=== PATIENT | female | born 1980 | race Caucasian/White ===

== ENCOUNTER 2017-04-10 02:29 | Inpatient (IN) | payer MEDICAID ==
[~2017-04-10] VITALS: Ht 167.6 cm; Wt 101.6 kg
[2017-04-10] VITALS (7 sets, daily range): BP systolic 132–152; BP diastolic 70–102
--- NOTE | ~2017-04-10 | PROC ---
[address] [address] PROCEDURE REPORT Name: MIRLANDE QUEEN Room: [address] IN M.R.#: [id number] Admission: 04/10/17 Attend Phys: Eleanor Flores DO Discharge: 04/12/17 Date of : 78 Report #: [id number] THIS REPORT FOR: //name// For details of GI report, please see the Provation report in [employer] content. By: [id number] Records Staff MEAGHAN /JUAN ANTONIO
[~2017-04-10 02:29] MED LIST: ALPRAZOLAM 0.0.25 M1; FLONASE 0.05%50 MCG NASAL; MUCOSA400 MG PO; NASONEX17 GM; NORCO 5-325 TA1 EACH PO; NORFLEX100 MG PO; TESSALON PERLE100 MG PO; ZPAK PO
[2017-04-10] MEDS ORDERED: NOHOMEMEDICATIONS (02:45)
[2017-04-10 03:01] LABS: URINE BILIRUBIN NEGATIVE (Negative); URINE BLOOD NEGATIVE (Negative); URINE CLARITY CLEAR; URINE COLOR YELLOW; URINE GLUCOSE-RANDOM NEGATIVE (Negative); URINE KETONES NEGATIVE (Negative); URINE LEUKOCYTES-REFLEX NEGATIVE (Negative); URINE NITRITE-REFLEX NEGATIVE (Negative); URINE PROTEIN NEGATIVE (Negative); URINE SPECIFIC GRAVITY >= 1.030 (1.005-1.030); URINE UROBILINOGEN 0.2 E.U./dl (0.2-1.0)
[2017-04-10 03:13] LABS: ABSOLUTE BASOPHILS 0.1 thou/uL (0.0-0.2); ABSOLUTE EOSINOPHILS 0.2 thou/uL (0.0-0.7); ABSOLUTE LYMPHOCYTES 2.1 thou/uL (0.8-5.3); ABSOLUTE MONOCYTES 0.6 thou/uL (0.0-1.2); ABSOLUTE NEUTROPHILS 7.7 thou/uL (1.6-8.1); BASOPHILS 0.9 %; EOSINOPHILS 1.8 %; HEMATOCRIT 39.3 % (37.0-47.0); HEMOGLOBIN 13.9 gm/dL (12.0-15.0); LYMPHOCYTES 19.3 %; MCH 30.5 pg (26.0-34.0); MCHC 35.3 g/dL (28.0-37.0); MCV 86.4 fL (80.0-100.0); MONOCYTES 5.5 %; MPV 6.6 fl. (7.2-11.1); NUCLEATED RBCS 0 /100WBC; PLATELET COUNT* 405 thou/uL (150-400); POLYS 72.5 %; RBC 4.56 mil/uL (4.20-5.00); RDW-CV 12.9 % (10.5-14.5); WBC 10.7 thou/uL (4.0-11.0)
[2017-04-10 03:15] LABS: AMP/METHAMP POSITIVE (Negative); BARBITURATES Negative (Negative); BENZODIAZEPINES Negative (Negative); COCAINE Negative (Negative); METHADONE Negative (Negative); OPIATES Negative (Negative); PCP Negative (Negative); THC Negative (Negative)
[2017-04-10 03:32] LABS: CALCIUM 8.6 mg/dL (8.5-10.1); CREATININE 0.7 mg/dL (0.6-1.3); POTASSIUM 3.9 mmol/L (3.5-5.1)
[2017-04-10 03:37] LABS: ALBUMIN 2.7 g/dL (3.4-5.0); TOTAL BILIRUBIN 0.4 mg/dL (<0.1-1.0)
--- NOTE | 2017-04-10 04:00 | NUR ---
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
--- NOTE | 2017-04-10 15:16 | NUR ---
PT ADMITTED FROM ED WITH ABD PAIN, C/O HEADACHE AND NAUSEA. PT DOES NOT WANT TO HAVE DILAUDID ANYMORE. PT DOES NOT LIKE THE WAY IT MAKES HER FEEL. DENIES ABD PAIN CURRENTLY.
[2017-04-11 04:02] LABS: HEMATOCRIT 40.5 % (37.0-47.0); HEMOGLOBIN 13.7 gm/dL (12.0-15.0); MCHC 33.7 g/dL (28.0-37.0); MPV 6.7 fl. (7.2-11.1); RBC 4.55 mil/uL (4.20-5.00); RDW-CV 12.8 % (10.5-14.5); WBC 8.3 thou/uL (4.0-11.0)
[2017-04-11 04:19] LABS: CALCIUM 8.9 mg/dL (8.5-10.1); CREATININE 0.7 mg/dL (0.6-1.3); POTASSIUM 4.4 mmol/L (3.5-5.1)
--- NOTE | 2017-04-11 05:05 | NUR ---
PATIENT ALERT AND ORIENTED. VITALS STABLE. RA. DENIES ABDOMINAL PAIN. COMPLAINTS OF MILD NAUSEA. FLUIDS INFUSING PER ORDER. SLEPT COMFORTABLY DURING THE NIGHT. TORADOL GIVEN FOR A HEADACHE. HOURLY ROUNDS. NURSING WILL CONTINUE TO MONITOR
[2017-04-11 08:01] VITALS: BP 129/67
--- NOTE | 2017-04-11 09:47 | NUR ---
ASSUMED CARE OF PATIENT AFTER REPORT. PATIENT AWAKE, ALERT, AND ORIENTED APPROPRIATELY. PHYSICAL ASSESSMENT COMPLETED AND CHARTED. NO COMPLAINTS OF PAIN. GIVEN SCHEDULED MEDICATIONS, SEE EMAR FOR DOCUMENTATION. VITAL SIGNS STABLE. OXYGEN SATURATION WNL ON ROOM AIR. PATIENT IS UP AD KRISTA. USES CALL LIGHT APPROPRIATELY. DENIES NEEDS AT THIS TIME. NURSING WILL CONTINUE TO MONITOR.
[2017-04-11 16:52] VITALS: BP 132/73
--- NOTE | 2017-04-11 18:42 | NUR ---
ASSUMED CARE OF PATIENT AFTER TRNASFER OF CARE AT APPROXIMATELY 1530. AGREE WITH PREVIOUS NURSES ASSESSMENT. PATIENT REMAINS ALERT AND ORIENTED. NO COMPLAINTS OF NAUSEA OR PAIN. HOURLY ROUNDS MAINTAINED. CALL LIGHT IS WITHIN REACH. NURSING WILL CONTINUE TO MONITOR.
[2017-04-12 04:19] VITALS: BP 116/67
--- NOTE | 2017-04-12 04:38 | NUR ---
PATIENT SLEPT FOR MOST OF SHIFT. ORIENTED X4 ON HOURLY ROUNDS. HAD TO ENCOURAGE PATIENT TO STAY AWAKE TO COMPLETE BOWEL PREP. SHE STATED THAT "IT DOESN'T TASTE GOOD AND MAKING ME SICK AT MY STOMACH." BOWELS NOT YET CLEAR THIS AM. PHYSICIAN TO BE NOTIFIED. UP AD KRISTA. IN ROOM. DENIES PAIN. VITALS STABLE. WILL CONTINUE TO MONITOR.
[2017-04-12 07:43] VITALS: BP 116/67
[2017-04-12 08:51] VITALS: BP 120/73
[2017-04-12 11:00] VITALS: BP 138/73
--- NOTE | 2017-04-12 11:39 | NUR ---
PATIENT ARRIVED BACK ON THE UNIT FROM PACU AT APPOXIMATELY 1100. ALERT AND ORIENTED. VSS ON ROOM AIR. PATIENT IS TO REMAIN NPO, CONTRAST WAS BROUGHT UP BY RADIOLOGY FOR UPCOMING CT SCAN. PATIENT IS CURRENTLY WORKING ON CONSUMING CONTRAST. CALL LIGHT IS WITHIN REACH. NURSING WILL CONTINUE TO MONITOR.
[2017-04-12 13:37] LABS: CALCIUM 8.2 mg/dL (8.5-10.1); CREATININE 0.7 mg/dL (0.6-1.3); POTASSIUM 3.7 mmol/L (3.5-5.1)
[2017-04-12 14:41] VITALS: BP 138/73
[2017-04-12] MEDS ORDERED: COLACE 100 MG100 MG PO (14:54)
[2017-04-12] MEDS ORDERED: MIRALAX17 GM PO (14:55)
[2017-04-12] MEDS ORDERED: FLAGYL500 MG PO (14:56)
[2017-04-12] MEDS ORDERED: CIPRO500 MG PO (14:57)
--- NOTE | 2017-04-12 17:13 | NUR ---
ASSUMED CARE OF PATIENT AFTER MORNING REPORT. ALERT AND ORIENTED X4. ASSESSMENT COMPLETED AND CHARTED. VSS ON ROOM AIR. PATIENT HAD NO COMPLAINTS OF PAIN OR NAUSEA THIS SHIFT. COLONOSCOPY DONE THIS MORNING. PATIENT ADVANCED TO REGULAR DIET AND TOLERATED WELL. PATIENT DISCHARGED AT 1710 WITH SPOUSE. ALL PERSONAL BELONGINGS LEFT WITH PATIENT. DISCHARGE INSTRUCTIONS AND PRESCRIPTIONS SENT WITH PATIENT UPON DISCHARGE.
--- NOTE | 2017-04-15 12:56 | S ---
[address] [address] SURGICAL PATH RPT PROCEDURE Name: ALICIA QUEEN Room: [address] IN M.R.#: [id number] Admission: 04/10/17 Date of : 78 Discharge: 04/12/17 Report #: [id number] Path Case #: [id number] PATHOLOGY REPORT COLLECTION DATE: 04/12/2017 RECEIVED DATE: 04/12/2017 SUBMITTING PHYS: Dr. Teresa Reeves OTHER PHYS: Dr. Eleanor Munoz SPECIMEN(S) RECEIVED: A.Sigmoid polyp * * * * * * * * * * * * FINAL DIAGNOSIS: Sigmoid colon polyp: - Hyperplastic polyp. (JUAN MIGUEL:[facility]; 04/15/2017) PATHOLOGIST: Pancho Dye M.D. REPORT ELECTRONICALLY SIGNED BY: Pancho Dye M.D. DATE/TIME: 04/15/2017 12:56 * * * * * * * * * * * * GROSS PATHOLOGY: Received in formalin labeled "Alicia Queen sigmoid colon polyp," is a segment of leon soft tissue measuring 0.4 cm in maximum dimension. The specimen is submitted entirely in cassette A1. ([facility]; 04/12/2017) CLINICAL HISTORY: None provided INITIAL CPT CODE(S): A; 94747 Professional services performed by [facility] at [facility], [facility] [address], [place] [address]. Technical services performed by [facility] at [address] [place] [address], [address], [place] [address]. [facility] [address] [address] PHONE: [phone] [place] [address] SURGICAL PATH RPT PROCEDURE Name: ALICIA QUEEN Room: [address] IN M.R.#: [id number] Admission: 04/10/17 Date of : 78 Discharge: 04/12/17 Report #: [id number] Path Case #: [id number] DIRECTOR: Sanjiv Erazo M.D. * * * END OF REPORT * * *
--- NOTE | 2017-04-17 16:13 | CON ---
[address] [address] CONSULTATION Name: MIRLANDE QUEEN Room: [address] IN M.R.#: [id number] Admission: 04/10/17 Attend Phys: Eleanor Flores, Discharge: 04/12/17 Date of : 78 Report #: [id number] THIS REPORT FOR: //name// CC: Eleanor Munoz DICTATED BY: Shakila Avendano [facility] DATE OF SERVICE: 04/11/2017 The patient does not have a PCP. Please note at the time of this dictation, the patient was seen and physically examined by myself. REASON FOR CONSULTATION: Abdominal pain and abnormal CT findings of the small bowel. HISTORY OF PRESENT ILLNESS: This 36-year-old female presented to the Emergency Room after beginning to have abdominal pain, which started on April 03. She states it was an acute onset and she described it as a twisting severe and constant discomfort. It would wax and wane; however, it progressively has gotten worse. She put herself on a clear liquid diet and to rest her gut thinking that this would help. However, it did not. She started feeling very bloated with worsening of her pain. The patient states that she had some form of colitis back in 2013. The patient states that she has never been diagnosed with any inflammatory bowel disease at that time. She states her bowels typically move soft and formed every day. She denies any bright red blood or any melena. She denies any nausea or vomiting either. She denies any decrease in her appetite, fever or chills or any weight loss. She has never had any upper or lower endoscopy studies done. ALLERGIES: No known drug allergies. MEDICATIONS FROM HOME: Norflex and some [place]. PAST MEDICAL HISTORY: Hyperemesis with her , otherwise negative. Also noted to have a teratoma of the right ovary that has been monitored and she has known that she has had that for several years. PAST SURGICAL HISTORY: Miscarriage, mastoid reconstruction on the left side, tubes in her right ear and a cholecystectomy. FAMILY HISTORY: Negative for any GI or female cancers. SOCIAL HISTORY: The patient is . Tobacco use daily. Denies any alcohol. Drug screen was [place] [address] CONSULTATION Name: MIRLANDE QUEEN Room: [address] IN [facility].#: [id number] Admission: 04/10/17 Attend Phys: Eleanor Flores, Discharge: 04/12/17 Date of : 78 Report #: [id number] REVIEW OF SYSTEMS: Twelve-point review of systems is essentially negative except what is mentioned in the HPI. PHYSICAL EXAMINATION: VITAL SIGNS: Temperature 36.4, pulse 72, respirations 18, blood pressure 129/67. HEART: Regular rate and rhythm. LUNGS: Clear. ABDOMEN: Soft, positive bowel sounds in all 4 quadrants with no masses or tenderness noted. LABORATORY DATA: Hemoglobin is 13.7, hematocrit 40.5, white count is 8.3, platelets 407. Sodium 139, potassium 4.4, chloride 102, CO2 33, BUN is 11, creatinine 0.7, GFR is 94. Glucose is 110. 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 CT of the abdomen and pelvis showed some distal small bowel inflammation and thickening near the distal ileum. IMPRESSION: 1. Abdominal pain. 2. Abnormal CT findings. 3. History of right ovarian teratoma. PLAN: 1. Colonoscopy tomorrow with Dr. Reeves. 2. Labs, CRP and ESR. 3. Further recommendations to be made once the procedure has been performed. Thank you for allowing us to participate in this patient's care. Please do not hesitate to call with any questions in regard to this consult. <ELECTRONICALLY SIGNED> By: Teresa Reeves MD 04/17/17 1613 1534 [id number] Reeevs MD /nt
--- NOTE | 2017-04-17 16:13 | CON ---
[address] [address] CONSULTATION Name: MIRLANDE QUEEN Room: [address] IN M.R.#: [id number] Admission: 04/10/17 Attend Phys: Eleanor Flores DO Discharge: 04/12/17 Date of : 78 Report #: [id number] THIS REPORT FOR: //name// CC: Eleanor Munoz DATE OF SERVICE: 04/11/2017 ADDENDUM This is a 36-year-old female with no previous history of GI issues who except she remembers that 3 years ago, she was told she had colitis per CT. She has been having abdominal pain, which has been generalized. She denies any diarrhea, constipation, hematochezia, melena, nausea, vomiting or dyspepsia. Upon admission, the patient found to have stranding and inflammation in the pelvis secondary to distal small bowel thickening. The appendix appeared normal. The patient also found to have right ovarian or adnexal mass with fat and calcification consistent with ___. The patient does not have any leukocytosis and currently her abdomen is soft, nontender, nondistended. This is most probably secondary to infectious enteritis. Since the patient has had history of colitis 3 years ago, we will perform a colonoscopy and look at the distal ileum. <ELECTRONICALLY SIGNED> By: Teresa Reeves MD 04/17/17 1613 1638 1918Teresa Reeves MD /melvin
== END 2017-04-12 17:10 | disposition home or self-care (01) | DRG 392 ==
LOC: M.ERS 02:29 → M.TBA-ER 06:58 → M.ORTHSURG 06:58
PROVIDERS: Emergency Medicine; Surgery; ADMIT Surgery
PROC: 0DBN8ZZ Excision of Sigmoid Colon, Via Natural or Artificial Opening Endoscopic (ICD-10-PCS; principal; 2017-04-12)
DX: K52.9 Noninfective gastroenteritis and colitis, unspecified (principal); D27.0 Benign neoplasm of right ovary; F17.210 Nicotine dependence, cigarettes, uncomplicated; K37 Unspecified appendicitis; N83.202 Unspecified ovarian cyst, left side; K63.5 Polyp of colon; K64.8 Other hemorrhoids; K63.89 Other specified diseases of intestine; Z90.49 Acquired absence of other specified parts of digestive tract